=== PATIENT | female | born 1935 | race Caucasian/White ===

== ENCOUNTER 2016-10-17 17:37 | Inpatient (IN) | payer MEDICARE, OTHER ==
[~2016-10-17] VITALS: Ht 165.1 cm; Wt 97.7 kg
[2016-10-17 18:49] LABS: BASOPHILS % (AUTO) 0 % (0-10); EOSINOPHILS # (AUTO) 0.1 10^3/uL (0.0-0.3); EOSINOPHILS % (AUTO) 2 % (0-10); LYMPHOCYTES # (AUTO) 2.2 X 10^3 (1.0-4.0); LYMPHOCYTES % (AUTO) 28 % (12-44); MEAN CORPUSCULAR HEMOGLOBIN 31 PG (25-34); MEAN CORPUSCULAR HGB CONC 32 G/DL (32-36); MEAN CORPUSCULAR VOLUME 97 FL (80-99); MEAN PLATELET VOLUME 10.3 FL (7.4-10.4); MONOCYTES # (AUTO) 0.7 X 10^3 (0.0-1.0); MONOCYTES % (AUTO) 9 % (0-12); NEUTROPHILS # (AUTO) 4.7 X 10^3 (1.8-7.8); NEUTROPHILS % (AUTO) 61 % (42-75); PLATELET COUNT 221 10^3/uL (130-400); RED BLOOD COUNT 4.52 10^6/uL (4.35-5.85); RED CELL DISTRIBUTION WIDTH 14.2 % (10.0-14.5); WHITE BLOOD COUNT 7.7 10^3/uL (4.3-11.0)
[2016-10-17 18:54] LABS: INR 1.1 (0.8-1.4); PROTHROMBIN TIME PATIENT 13.6 SEC (12.2-14.7)
[2016-10-17 19:04] LABS: ALANINE AMINOTRANSFERASE 40 U/L (0-55); ALBUMIN 4.1 G/DL (3.2-4.5); ANION GAP 11 MMOL/L (5-14); ASPARTATE AMINO TRANSFERASE 42 U/L (5-34); BILIRUBIN,TOTAL 0.5 MG/DL (0.1-1.0); BLOOD UREA NITROGEN 12 MG/DL (7-18); BUN/CREATININE RATIO 16; CALCIUM 9.8 MG/DL (8.5-10.1); CARBON DIOXIDE 27 MMOL/L (21-32); CHLORIDE 104 MMOL/L (98-107); CREATINE KINASE 58 U/L (29-168); CREATININE SERUM 0.76 MG/DL (0.60-1.30); GFR ESTIMATED > 60; GLUCOSE 116 MG/DL (70-105); MAGNESIUM 2.3 MG/DL (1.8-2.4); POTASSIUM 4.1 MMOL/L (3.6-5.0); SODIUM 142 MMOL/L (135-145)
[2016-10-17] MEDS ORDERED: DILTIAZEM DRIP 100 MG in SODIUM CHLORIDE (ADD-VANTAGE) 100 ML IV SCH (19:15)
[2016-10-17] MEDS ORDERED: ASPIRIN 81 MG CHEW (CHILDREN'S ASA) PO ONE (19:15)
[2016-10-17 19:24] LABS: TROPONIN I < 0.30 NG/ML (<0.30)
--- NOTE | 2016-10-17 19:47 | ED General ---
General Chief Complaint: Lower Extremity Stated Complaint: BILAT LEG SWELLING/BLISTERS Nursing Triage Note: pt c/o bilat lower extremity swelling x 2 weeks with blisters developing. also reports decreased urination. Nursing Sepsis Screen: No Definite Risk Source of Information: Patient (PT IS A VERY DIFFICULT HISTORIAN, GIVES VERY LITTLE INFORMATION AND IS VERY VAGUE), Family (DAUGHTER GIVES MOST INFO) History of Present Illness Time Seen by Provider: 18:40 Initial Comments PT ARRIVES VIA POV FROM HOME--PT LIVES WITH DAUGHTER C/O BILATERAL LEG SWELLING AND BLISTERS/WEEPING TO LOWER LEGS X 2 WEEKS--STATES IS NO DIFFERENT TODAY DENIES CHEST PAIN HAS CHRONIC COUGH, BUT HAS BEEN WORSE RECENTLY, THEN STATES THAT IT IS GETTING BETTER DENIES FEVER/SWEATS/ CHILLS PT DENIES SHORTNESS OF BREATH DAUGHTER STATES SHE HAS HAD DECREASED URINE OUTPUT PT IS ADAMANT TO THE POINT OF HOSTILITY THAT ALL THIS IS JUST DUE TO ALLERGIES PT DOES STATE SHE WAS DX WITH CIRRHOSIS IN 1991 AND HAS HISTORY OF ALCOHOLISM PT CONTINUES TO SMILE AT LEAST 1 PPD PT DOES NOT HAVE A DR, AND DOES NOT GO TO DR'S. STATES DAUGHTER MADE HER COME HERE TONIGHT Allergies and Home Medications Allergies Coded Allergies: No Known Drug Allergies (Unverified , 10/17/16) Home Medications Unable to Obtain Active Prescriptions or Reported Meds Constitutional: No chills, No diaphoresis, No fever Respiratory: cough, No short of breath (DENIES) Cardiovascular: No chest pain, edema, No palpitations Gastrointestinal: No abdominal pain, No nausea, No vomiting Genitourinary: see HPI, decreased output Musculoskeletal: see HPI Skin: see HPI Psychiatric/Neurological: Denies Numbness, Denies Paresthesia, Denies Tingling , Denies Weakness Hematologic/Lymphatic: No Symptoms Reported Immunological/Allergic: see HPI Past Mxaoyuv-Musvqw-Cnghvl Hx Patient Social History Alcohol Use: Past History Recreational Drug Use: No Smoking Status: Current Everyday Smoker (1 PPD) Type Used: Cigarettes Recent Foreign Travel: No Contact w/Someone Who Travel: No Recent Infectious Disease Expo: No Recent Hopitalizations: No Seasonal Allergies Seasonal Allergies: No Surgeries HX Surgeries: No Respiratory Hx Respiratory Disorders: No Cardiovascular Hx Cardiac Disorders: No Neurological Hx Neurological Disorders: No Reproductive System Hx Reproductive Disorders: No 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 Genitourinary Hx Genitourinary Disorders: No Gastrointestinal Hx Gastrointestinal Disorders: Yes Gastrointestinal Disorders: Cirrhosis Musculoskeletal Hx Musculoskeletal Disorders: No Endocrine Hx Endocrine Disorders: No HEENT HX ENT Disorders: No Cancer Hx Cancer: No Psychosocial Hx Psychiatric Problems: No Integumentary HX Skin/Integumentary Disorder: No Blood Transfusions Hx Blood Disorders: No Physical Exam Vital Signs Vital Sign - Last 12Hours 10/17/16 10/17/16 10/17/16 18:18 18:30 19:42 Temp 99.7 Pulse 139 Resp 20 B/P (MAP) 145/99 Pulse Ox 93 O2 Delivery Nasal Cannula O2 Flow Rate 2.00 Capillary Refill : Less Than 3 Seconds General Appearance: No Apparent Distress, WD/WN, Obese, Other (HOSTILE, MOSTLY TOWARD DAUGHTER--FIGHTING WITH DAUGHTER ABOUT HER MEDICAL ISSUES AND PT IN SEVERE DENIAL ABOUT HER HEALTH ISSUES --INSISTS REPEATEDLY THIS IS ALL FROM HER "ALLERGIES" ) HEENT: PERRL/EOMI Neck: Full Range of Motion, Normal Inspection, Non Tender, Supple, No JVD Respiratory: No Accessory Muscle Use, No Respiratory Distress, Rales (IN BASES --LEFT > RIGHT) Cardiovascular: No JVD, No Murmur, Normal Peripheral Pulses, Irregularly Irregular, Tachycardia Gastrointestinal: Non Tender, Soft Back: No CVA Tenderness Extremity: Normal Capillary Refill, Pedal Edema (2+ ON RIGHT, 3+ ON LEFT WITH RUPTURED / SCABBED BLISTERS AND ECCHYMOTIC AREAS TO LOWER LEGS--LEFT > RIGHT) Neurologic/Psychiatric: Alert, Oriented x3, No Motor/Sensory Deficits, 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 Skin: Normal Color, Warm/Dry, Other ( ABOVE) Progress/Results/Core Measures Results/Orders Lab Results Laboratory Tests Test 10/17/16 18:37 10/17/16 20:46 10/17/16 21:02 10/17/16 23:30 Range/Units White Blood Count 7.7 4.3-11.0 10^3/uL Red Blood Count 4.52 4.35-5.85 10^6/uL Hemoglobin 13.9 11.5-16.0 G/DL Hematocrit 44 35-52 % Mean Corpuscular Volume 97 80-99 FL Mean Corpuscular Hemoglobin 31 25-34 PG Mean Corpuscular Hemoglobin Concent 32 32-36 G/DL Red Cell Distribution Width 14.2 10.0-14.5 % Platelet Count 221 130-400 10^3/uL Mean Platelet Volume 10.3 7.4-10.4 FL Neutrophils (%) (Auto) 61 42-75 % Lymphocytes (%) (Auto) 28 12-44 % Monocytes (%) (Auto) 9 0-12 % Eosinophils (%) (Auto) 2 0-10 % Basophils (%) (Auto) 0 0-10 % Neutrophils # (Auto) 4.7 1.8-7.8 X 10^3 Lymphocytes # (Auto) 2.2 1.0-4.0 X 10^3 Monocytes # (Auto) 0.7 0.0-1.0 X 10^3 Eosinophils # (Auto) 0.1 0.0-0.3 10^3/uL Basophils # (Auto) 0.0 0.0-0.1 10^3/uL Prothrombin Time 13.6 12.2-14.7 SEC INR Comment 1.1 0.8-1.4 Activated Partial Thromboplast Time 30 24-35 SEC Sodium Level 142 135-145 MMOL/L Potassium Level 4.1 3.6-5.0 MMOL/L Chloride Level 104 98-107 MMOL/L Carbon Dioxide Level 27 21-32 MMOL/L Anion Gap 11 5-14 MMOL/L Blood Urea Nitrogen 12 7-18 MG/DL Creatinine 0.76 0.60-1.30 MG/DL Estimat Glomerular Filtration Rate > 60 BUN/Creatinine Ratio 16 Glucose Level 116 H 70-105 MG/DL Calcium Level 9.8 8.5-10.1 MG/DL Magnesium Level 2.3 1.8-2.4 MG/DL Total Bilirubin 0.5 0.1-1.0 MG/DL Aspartate Amino Transf (AST/SGOT) 42 H 5-34 U/L Alanine Aminotransferase (ALT/SGPT) 40 0-55 U/L Alkaline Phosphatase 93 40-136 U/L Total Creatine Kinase 58 29-168 U/L Creatine Kinase MB 1.8 <6.6 NG/ML Troponin I < 0.30 < 0.30 <0.30 NG/ML B-Type Natriuretic Peptide 393.4 H <100.0 PG/ML Total Protein 7.0 6.4-8.2 G/DL Albumin 4.1 3.2-4.5 G/DL TSH [place] Testing 2.62 0.35-4.94 UIU/ML Serum Alcohol < 10 <10 MG/DL Urine Color YELLOW Urine Clarity CLEAR Urine pH 5 5-9 Urine Specific [place] 1.020 1.016-1.022 Urine Protein 2+ H NEGATIVE Urine Glucose (UA) NEGATIVE NEGATIVE Urine Ketones NEGATIVE NEGATIVE Urine Nitrite NEGATIVE NEGATIVE Urine Bilirubin NEGATIVE NEGATIVE Urine Urobilinogen 1 NORMAL MG/DL Urine Leukocyte Esterase 1+ H NEGATIVE Urine RBC (Auto) 1+ H NEGATIVE Urine RBC RARE /HPF Urine WBC 0-2 /HPF Urine Squamous Epithelial Cells RARE /HPF Urine Crystals PRESENT H /LPF Urine Calcium Oxalate Crystals MODERATE H /LPF Urine Bacteria NONE /HPF Urine Casts NONE /LPF Urine Mucus NEGATIVE /LPF Urine Culture Indicated NO Lactic Acid Level 0.81 0.50-2.00 MMOL/L Myoglobin 68.0 10.0-92.0 NG/ML My Orders Orders - DANDY LAST DO Saline Lock/Iv-Start (10/17/16 18:41) Ekg Tracing (10/17/16 18:41) Monitor-Rhythm Ecg Trace Only (10/17/16 18:41) BNP (10/17/16 18:41) Cbc With Automated Diff (10/17/16 18:41) Comprehensive Metabolic Panel (10/17/16 18:41) Creatine Kinase (10/17/16 18:41) Creatine Kinase Mb (10/17/16 18:41) Magnesium (10/17/16 18:41) Protime With Inr (10/17/16 18:41) Partial Thromboplastin Time (10/17/16 18:41) Thyroid Analyzer (10/17/16 18:41) Troponin I (10/17/16 18:41) Ua Culture If Indicated (10/17/16 18:41) O2 (10/17/16 18:41) Sodium Chloride (Ad... W/Diltiazem Drip (10/17/16 19:15) Chest 1 View, Ap/Pa Only (10/17/16 19:11) Aspirin Chewable Tablet (Baby Aspirin Ch (10/17/16 19:15) Alcohol (10/17/16 19:11) Ct Angio Chest W (10/17/16 19:47) Furosemide Injection (Lasix Injection) (10/17/16 20:00) Nitroglycerin Ointment (Nitrobid Ointme (10/17/16 20:00) Catheter(Urinary) Insert & Ass 03,15 (10/17/16 19:52) Iohexol Injection (Omnipaque 350 Mg/Ml 1 (10/17/16 20:15) Ns (Ivpb) (Sodium Chloride 0.9% Ivpb Bag (10/17/16 20:15) Lactic Acid Analyzer (10/17/16 20:52) Blood Culture (10/17/16 20:52) Ceftriaxone Injection (Rocephin Injectio (10/17/16 21:00) Methylprednisolone Sod Succ (Solu-Medrol (10/17/16 21:00) Enoxaparin Injection (Lovenox Injection) (10/17/16 21:15) Metoprolol Tartrate Injection (Lopressor (10/17/16 21:15) Ceftriaxone Injection (Rocephin Injectio (10/17/16 21:27) Methylprednisolone Sod Succ (Solu-Medrol (10/17/16 21:30) Ns (Ivpb) (Sodium Chloride 0.9% Ivpb Bag (10/17/16 21:30) Medications Given in ED Current Medications Medications Dose Ordered Sig/Jennifer Route Start Time Stop Time Status Last Admin Dose Admin Aspirin 324 mg ONCE ONCE PO 10/17/16 19:15 10/17/16 19:16 DC 10/17/16 19:42 324 MG Ceftriaxone Sodium 1000 mg/ Sodium Chloride 50 ml @ 100 mls/hr ONCE ONCE IV 10/17/16 21:00 10/17/16 21:32 DC 10/17/16 21:35 100 MLS/HR Furosemide 80 mg ONCE ONCE IVP 10/17/16 20:00 10/17/16 20:01 DC 10/17/16 20:35 80 MG Iohexol 150 ml ONCE ONCE IV 10/17/16 20:15 10/17/16 20:16 DC 10/17/16 20:12 125 ML Methylprednisolone Sodium Succinate 125 mg ONCE ONCE IVP 10/17/16 21:00 10/17/16 21:32 DC 10/17/16 21:35 125 MG Nitroglycerin 1 inch ONCE ONCE TOP 10/17/16 20:00 10/17/16 20:01 DC 10/17/16 20:50 1 INCH Sodium Chloride 100 ml ONCE ONCE IV 10/17/16 20:15 10/17/16 20:16 DC 10/17/16 20:13 80 ML Vital Signs/I&O Vital Sign - Last 12Hours 10/17/16 10/17/16 10/17/16 10/17/16 18:18 18:30 19:42 22:35 Temp 99.7 98.1 98.1 Pulse 139 85 Resp 20 20 B/P (MAP) 145/99 141/102 Pulse Ox 93 91 92 O2 Delivery Nasal Cannula O2 Flow Rate 2.00 2.00 2.00 10/17/16 10/17/16 10/17/16 10/17/16 22:45 22:59 23:00 23:47 Temp 98.2 Pulse 89 86 Resp 10 B/P (MAP) 133/84 126/83 Pulse Ox 95 92 O2 Delivery Nasal Cannula O2 Flow Rate 3.00 3.00 10/18/16 10/18/16 10/18/16 10/18/16 00:00 00:40 01:00 02:31 Pulse 75 74 B/P (MAP) 120/82 Pulse Ox 92 94 O2 Flow Rate 3.00 Blood Pressure Mean: 114 Progress Note : Progress Note PT PLACED ON CARDIZEM DRIP, GIVEN LASIX, LOVENOX, ASPIRIN, LOPRESSOR, ROCEPHIN INITIAL O2 SAT 90-91% ON ROOM AIR--UP TO MID 90'S ON 2L/NC ECG Initial ECG Impression Time: 18:40 Initial ECG Rate: 131 Initial ECG Rhythm: A Fib/Flutter (WITH RVR) Initial ECG Impression: Atrial Fibrillation w/RVR Initial ECG Comparisson: No Previous ECG Available Diagnostic Imaging Comments CXR-CARDIOMEGALY, MILD PULMONARY EDEMA, POSSIBLE RLL PNEUMONIA AND TRACE PLEURAL EFFUSION--PER RADIOLOGIST REPORT CT CHEST ANGIOGRAM--NO P.E. CARDIOMEGALY WITH FINDINGS OF PULMONARY HTN; RML / RLL CONSOLIDATIONS, TRACE RIGHT PLEURAL EFFUSION, CIRRHOSIS OF LIVER, LEFT THYROID NODULE, GALLSTONES--PER RADIOLOGIST REPORT @ 2049 Reviewed: Reviewed by Me Departure Communication Progress Notes 2099--SPOKE WITH DR. TRINH, ACCEPTS PT FOR ADMIT. WILL CONSULT DR. STOKES AND DR. KOLB 2102--SPOKE WITH DR. STOKES FOR CARDIOLOGY CONSULT. ORDERS NOTED. Impression Impression: Primary Impression: ATRIAL FIBRILLATION WITH RVR--NEW DIAGNOSIS/UNKNOWN DURATION Additional Impressions: CHF (congestive heart failure) Pneumonia involving right lung Cirrhosis HTN (hypertension) Tobacco abuse History of alcoholism LEG EDEMA BILATERALLY WITH BLISTERS Disposition: ADMITTED INPATIENT Condition: Improved Decision to Admit Reason: Admit from ER (General) Decision to Admit/Date: Oct 17, 2016 Time/Decision to Admit Time: 21:00 Departure-Patient Inst. Referrals: NO,LOCAL PHYSICIAN (PCP/Family) Primary Care Physician Scripts Unable to Obtain Active Prescriptions or Reported Meds DANDY LAST DO Oct 17, 2016 19:47
[2016-10-17] MEDS ORDERED: FUROSEMIDE 40 MG/4 ML INJ (LASIX) IVP ONE (20:00)
[2016-10-17] MEDS ORDERED: NITROGLYCERIN 2% OINT 1 GM UNIT DOSE PACKET TOP ONE (20:00)
--- NOTE | 2016-10-17 20:02 | Diagnostic Imaging Report ---
INDICATION: Lower extremity swelling. COMPARISON: None available. TECHNIQUE: Single view of the chest. FINDINGS: Cardiomegaly with bilateral perihilar heterogeneous opacities. More nodular irregular opacities are present in the right lung base. Pulmonary vascular indistinctness is present. Possible trace right pleural effusion. No pneumothorax. IMPRESSION: 1. Cardiomegaly with findings most suggestive of mild pulmonary edema. However, in the appropriate setting, there could be an underlying pneumonia in the right lower lobe. 2. Question of trace right pleural effusion. Dictated by: Dictated on workstation # [id number]
[2016-10-17] MEDS ORDERED: IOHEXOL 350 MG/ML 150 ML (OMNIPAQUE 350) VIAL IV ONE (20:15)
[2016-10-17] MEDS ORDERED: NS 100 ML (IVPB) BAG IV ONE (20:15)
--- NOTE | 2016-10-17 20:44 | Diagnostic Imaging Report ---
PROCEDURE: CT angiography of the chest with contrast. TECHNIQUE: Multiple contiguous axial images were obtained through the chest after uneventful bolus administration of intravenous contrast. Reconstructed CTA MIP acquisitions were also performed. INDICATION: Chest pain with bilateral lower extremity swelling. COMPARISON: Portable chest radiograph of earlier same day. FINDINGS: Vasculature: No pulmonary emboli. No evidence of right ventricular strain. The pulmonary trunk is dilated suggestive of pulmonary hypertension. Thoracic aorta is normal in caliber. No aortic disection or pseudoaneurysm. Heart and mediastinum: There is a 2.7-1.8 cm hypodense nodule in the left thyroid. No supraclavicular, axillary, or intra-thoracic lymphadenopathy. Heart is enlarged without pericardial effusion. Pleura: Trace right pleural effusion. No pneumothorax. Lungs and airway: Right middle lobe subtotal consolidations with bandlike configuration. Patchy opacities in the lingula and right lower lobe are also present. No concerning pulmonary mass. Upper abdomen: The liver has a very lobulated surface morphology. Hyperdensities layering within the gallbladder are most compatible with gallstones. Musculoskeletal: No concerning osseous lesion. IMPRESSION: 1. No pulmonary emboli. 2. Cardiomegaly with enlargement of the pulmonary trunk suggestive of pulmonary hypertension. 3. Subtotal consolidations within the middle lobe and patchy consolidations in the right lower lobe could be due to atelectasis. However, in an appropriate setting, these may represent foci of infection. 4. Trace right pleural effusion. 5. Extremely lobulated morphology of the liver raises possibility of cirrhosis. Underlying neoplastic process cannot be excluded. 6. Layering hyperdensities in the gallbladder most compatible with cholelithiasis. 7. Indeterminate left thyroid nodule measuring 2.7 x 1.8 cm. Consider thyroid ultrasound for further evaluation on a nonemergent basis. Dictated by: Dictated on workstation # [id number]
[2016-10-17 20:53] LABS: KETONES,URINE NEGATIVE (NEGATIVE); LEUKOCYTE ESTERASE ,URINE 1+ (NEGATIVE); NITRITE,URINE NEGATIVE (NEGATIVE); PH,URINE 5 (5-9); PROTEIN,URINE 2+ (NEGATIVE); UROBILINOGEN,URINE 1 MG/DL (NORMAL)
[2016-10-17] MEDS ORDERED: methylPREDNISolone 125 MG (Solu-MEDROL) VIAL IVP ONE (21:00)
[2016-10-17] MEDS ORDERED: cefTRIAXone INJECTION 1,000 MG in NS (IVPB) 50 ML IV ONE (21:00)
[2016-10-17 21:05] LABS: BILIRUBIN,URINE NEGATIVE (NEGATIVE); SQUAMOUS EPITHELIAL CELL,UR RARE /HPF; WBC,URINE 0-2 /HPF
[2016-10-17 21:06] LABS: CALCIUM OXALATE CRYSTALS,UR MODERATE /LPF
[2016-10-17] MEDS ORDERED: ENOXAPARIN 80 MG/0.8 ML (LOVENOX) SYR SC ONE (21:15)
[2016-10-17] MEDS ORDERED: meTOprolol 5 MG/5 ML (LOPRESSOR) VIAL IV ONE (21:15)
[2016-10-17] MEDS ORDERED: cefTRIAXone 1 GM (ROCEPHIN) VIAL ONE (21:27)
[2016-10-17] MEDS ORDERED: methylPREDNISolone 125 MG (Solu-MEDROL) VIAL ONE (21:30)
[2016-10-17] MEDS ORDERED: NS (IVPB) 50 ML ONE (21:30)
[2016-10-17 22:45] VITALS: BP 133/84
[2016-10-17] MEDS ORDERED: PATIENT MAY USE OWN MEDS, ALL PO SCH (22:45)
[2016-10-17 23:00] VITALS: BP 126/83
[2016-10-17] MEDS ORDERED: meTOprolol 5 MG/5 ML (LOPRESSOR) VIAL IV PRN (23:45)
[2016-10-18] VITALS (19 sets, daily range): BP systolic 99–129; BP diastolic 48–91
[2016-10-18] MEDS ORDERED: morphine INJ 4 MG/ML 1 ML (VIAL/SYRINGE) IV PRN (00:15)
[2016-10-18] MEDS ORDERED: AZITHROMYCIN 500 MG/NS 250 ML IVPB (1 X DOSE) IV SCH ×2 (00:15)
[2016-10-18] MEDS ORDERED: ACETAMINOPHEN 500 MG TAB (TYLENOL) PO PRN (00:15)
[2016-10-18] MEDS: DILTIAZEM DRIP 100 MG/NS 100 ML IV SCH ×4 (00:40→07:16)
[2016-10-18] MEDS: NITROGLYCERIN 2% OINT 1 GM UNIT DOSE PACKET TOP SCH ×2 (02:00→09:02)
[2016-10-18] MEDS ORDERED: RT-ALBUTEROL SULF 2.5 MG/3 ML PRE-MIX VIAL IH PRN (02:45)
[2016-10-18] MEDS ORDERED: FLU TRIvalent (5 YOA+) 2016-17 (AFLURIA) 0.5 ML IM ONE (07:00)
[2016-10-18 07:02] LABS: CHOLESTEROL 187 MG/DL (< 200); DIRECT LDL 95 MG/DL (1-129); TRIGLYCERIDES 42 MG/DL (<150); VLDL CHOLESTEROL 8 MG/DL (5-40)
[2016-10-18] MEDS: RT-ALBUTEROL SULF 2.5 MG/3 ML PRE-MIX VIAL IH SCH ×4 (07:26→20:49)
--- NOTE | 2016-10-18 07:46 | Diagnostic Imaging Report ---
INDICATION: Pneumonia. Exam compared 10/17/2016 FINDINGS: Atelectatic changes in the right middle lobe have progressed. Airspace disease in the right lung base, however, improved. Cardiomegaly unchanged. IMPRESSION: Mixed changes on the right, atelectatic features have progressed, however, airspace disease has improved. Dictated by: Dictated on workstation # [id number]
--- NOTE | 2016-10-18 07:53 | Pulmonary Consultation ---
History of Present Illness History of Present Illness Date of Consultation 10/18/16 07:48 Date of Admission History of Present Illness 81yo with hx of cirrhosis secondary to ETOH and tobacco use presented to ED secondary to worsenign cough and bilateral leg swelling and blisters worsening over last 2 weeks Allergies and Home Medications Allergies Coded Allergies: No Known Drug Allergies (Unverified , 10/17/16) Home Medications No Active Prescriptions or Reported Meds Past Jxjzblp-Sekmie-Guebhg Hx Patient Social History Alcohol Use: Past History Recreational Drug Use: No Smoking Status: Current Everyday Smoker (1 PPD) Type Used: Cigarettes Recent Foreign Travel: No Contact w/Someone Who Travel: No Recent Infectious Disease Expo: No Recent Hopitalizations: No Physical Abuse Screen: No Sexual Abuse: No Immunizations Up To Date PED Vaccines UTD: No Date of Pneumonia Vaccine: Oct 17, 2016 Seasonal Allergies Seasonal Allergies: No Surgeries HX Surgeries: No Respiratory Hx Respiratory Disorders: No Cardiovascular Hx Cardiac Disorders: No Neurological Hx Neurological Disorders: No Reproductive System Hx Reproductive Disorders: 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 Exam Exam Vital Signs Date Time Temp Pulse Resp B/P (MAP) Pulse Ox O2 Delivery O2 Flow Rate FiO2 10/18/16 07:26 92 4.00 10/18/16 07:16 81 118/59 10/18/16 05:00 97.6 82 20 123/77 90 Nasal Cannula 3.00 10/18/16 04:00 84 21 111/91 92 Nasal Cannula 3.00 10/18/16 04:00 93 3.00 10/18/16 03:00 74 11 128/79 93 Nasal Cannula 3.00 10/18/16 02:31 94 10/18/16 02:00 77 28 112/90 93 Nasal Cannula 3.00 10/18/16 01:00 85 15 112/76 93 Nasal Cannula 3.00 10/18/16 01:00 74 10/18/16 00:40 75 120/82 10/18/16 00:00 92 3.00 10/18/16 00:00 80 34 112/74 93 Nasal Cannula 3.00 10/17/16 23:47 92 3.00 10/17/16 23:00 98.2 86 10 126/83 95 Nasal Cannula 3.00 10/17/16 22:59 89 10/17/16 22:45 133/84 10/17/16 22:35 98.1 85 20 92 2.00 10/17/16 19:42 98.1 139 20 141/102 91 2.00 10/17/16 18:30 93 Nasal Cannula 2.00 10/17/16 18:18 99.7 145/99 I & O 10/18/16 07:00 Intake Total 900 ml Output Total 2500 ml Balance -1600 ml General Appearance: No Apparent Distress, WD/WN, Obese, Other (HOSTILE, MOSTLY TOWARD DAUGHTER--FIGHTING WITH DAUGHTER ABOUT HER MEDICAL ISSUES AND PT IN SEVERE DENIAL ABOUT HER HEALTH ISSUES --INSISTS REPEATEDLY THIS IS ALL FROM HER "ALLERGIES" ) HEENT: PERRL/EOMI Neck: Full Range of Motion, Normal Inspection, Non Tender, Supple, No JVD Respiratory: No Accessory Muscle Use, No Respiratory Distress, Rales (IN BASES --LEFT > RIGHT) Cardiovascular: No JVD, No Murmur, Normal Peripheral Pulses, Irregularly Irregular, Tachycardia Capillary Refill: Less Than 3 Seconds Extremity: Normal Capillary Refill, Pedal Edema (2+ ON RIGHT, 3+ ON LEFT WITH RUPTURED / SCABBED BLISTERS AND ECCHYMOTIC AREAS TO LOWER LEGS--LEFT > RIGHT) Neurologic/Psychiatric: Alert, Oriented x3, No Motor/Sensory Deficits, 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
[2016-10-18] MEDS ORDERED: ENOXAPARIN 80 MG/0.8 ML (LOVENOX) SYR SC SCH (08:00)
[2016-10-18] MEDS ORDERED: FUROSEMIDE 40 MG/4 ML INJ (LASIX) IV SCH (08:00)
[2016-10-18] MEDS: ASPIRIN E.C. 325 MG (ECOTRIN) TABLET PO SCH (09:02)
--- NOTE | 2016-10-18 09:28 | Consultation-Cardiology ---
HPI-Cardiology Cardiology Consultation: Date of Consultation 10/18/16 Date of Admission 10/17/16 Attending Physician Monica Bach DO Admitting Physician No,Local Physician Consulting Physician ALYSIA STOKES MD, FACP, FACC, [facility], [facility] Physician requesting consult: Dr Bach HPI: Chief Complaint: Leg swelling, shortness of breath 81 yo woman brought to the ER on by her daughter with whom she lives. She has had increasing shortness of breath and bilat leg swelling and productive cough for several weeks. Denies cp or palp or dyspnea or syncope. Denies N/V/D or stool discoloration Review of Systems-Cardiology Review of Systems Constitutional: No malaise, No tiredness, No weight loss, weight gain Eyes: No vision change Ears/Nose/Throat: No ear discharge, No nasal drainage, No recent hearing loss Respiratory: As described under HPI Cardiovascular: As described under HPI Gastrointestinal: As described under HPI Genitourinary: No dysuria, No hematuria, No urine frequency changes Musculoskeletal: No back pain, No joint pain Skin: skin related problems (relatively chronic leg skin bruising ) Psychiatric/Neurological: No focal weakness, No seizure, No syncope Hematologic: No bleeding abnormalities JNO-Clwnze-Tnnweo Hx Patient Social History Alcohol Use: Past History Recreational Drug Use: No Smoking Status: Current Everyday Smoker (1 PPD) Type Used: Cigarettes Recent Foreign Travel: No Recent Infectious Disease Expo: No Hospitalization with Isolation: Denies Physical Abuse Screen: No Sexual Abuse: No Immunizations Up To Date Date of Pneumonia Vaccine: Oct 17, 2016 Past Medical History PMH As described under Assessment. Family Medical History Family Medical History: No family h/o early CAD of SCD Family History: Patient reports no known family medical history. Allergies and Home Medications Allergies Coded Allergies: No Known Drug Allergies (Unverified , 10/17/16) Home Medications Unable to Obtain Active Prescriptions or Reported Meds Physical Exam-Cardiology Physical Exam Vital Signs/I&O Vital Sign - Last 12Hours 10/17/16 10/17/16 10/17/16 10/17/16 22:35 22:45 22:59 23:00 Temp 98.1 98.2 Pulse 85 89 86 Resp 20 10 B/P (MAP) 133/84 126/83 Pulse Ox 92 95 O2 Delivery Nasal Cannula O2 Flow Rate 2.00 3.00 10/17/16 10/18/16 10/18/16 10/18/16 23:47 00:00 00:00 00:40 Pulse 80 75 Resp 34 B/P (MAP) 112/74 120/82 Pulse Ox 92 93 92 O2 Delivery Nasal Cannula O2 Flow Rate 3.00 3.00 3.00 10/18/16 10/18/16 10/18/16 10/18/16 01:00 01:00 02:00 02:31 Pulse 74 85 77 Resp 15 28 B/P (MAP) 112/76 112/90 Pulse Ox 93 93 94 O2 Delivery Nasal Cannula Nasal Cannula O2 Flow Rate 3.00 3.00 10/18/16 10/18/16 10/18/16 10/18/16 03:00 04:00 04:00 05:00 Temp 97.6 Pulse 74 84 82 Resp 11 21 20 B/P (MAP) 128/79 111/91 123/77 Pulse Ox 93 93 92 90 O2 Delivery Nasal Cannula Nasal Cannula Nasal Cannula O2 Flow Rate 3.00 3.00 3.00 3.00 10/18/16 10/18/16 10/18/16 10/18/16 07:00 07:00 07:16 07:26 Pulse 81 84 81 Resp 6 B/P (MAP) 107/70 118/59 Pulse Ox 91 92 O2 Delivery Nasal Cannula O2 Flow Rate 3.00 4.00 10/18/16 10/18/16 10/18/16 08:00 08:00 09:04 Temp 98.6 Pulse 87 81 Resp 27 20 B/P (MAP) 107/68 112/68 Pulse Ox 91 90 91 O2 Delivery Nasal Cannula Nasal Cannula O2 Flow Rate 3.00 3.00 3.00 Intake and Output 10/18/16 00:00 Intake Total 50 ml Balance 50 ml Capillary Refill : Less Than 3 Seconds Constitutional: AAO x 3, well-developed, well-nourished HEENT: EOMI, hearing is well preserved, No xanthelasmas are seen Neck: No carotid bruit, carotid pulses are 2 + bilaterally, with good upstrokes Respiratory: No accessory muscle use, other (bilateral rhonchi and increase exp phase; diminished air entry at the bases, more on the right) Cardiovascular: irregularly irregular, S1 and S2, systolic murmur (faint JUMANA at cardiac base) Gastrointestinal: No tender, soft, No guarding, audible bowel sounds Extremities: No clubbing, No cyanosis, significant edema Neurologic/Psychiatric: oriented x 3, grossly intact, power is 5/5 both on sides Skin: other (areas of scratching and abrasions and excoriation and bruising on the legs) Data Review Labs Laboratory Tests 10/17/16 18:37: White Blood Count 7.7, Red Blood Count 4.52, Hemoglobin 13.9, Hematocrit 44, Mean Corpuscular Volume 97, Mean Corpuscular Hemoglobin 31, Mean Corpuscular Hemoglobin Concent 32, Red Cell Distribution Width 14.2, Platelet Count 221, Mean Platelet Volume 10.3, Neutrophils (%) (Auto) 61, Lymphocytes (%) (Auto) 28 , Monocytes (%) (Auto) 9, Eosinophils (%) (Auto) 2, Basophils (%) (Auto) 0, Neutrophils # (Auto) 4.7, Lymphocytes # (Auto) 2.2, Monocytes # (Auto) 0.7, Eosinophils # (Auto) 0.1, Basophils # (Auto) 0.0, Prothrombin Time 13.6, INR Comment 1.1, Activated Partial Thromboplast Time 30, Sodium Level 142, Potassium Level 4.1, Chloride Level 104, Carbon Dioxide Level 27, Anion Gap 11, Blood Urea Nitrogen 12, Creatinine 0.76, Estimat Glomerular Filtration Rate > 60 , BUN/Creatinine Ratio 16, Glucose Level 116H, Calcium Level 9.8, Magnesium Level 2.3, Total Bilirubin 0.5, Aspartate Amino Transf (AST/SGOT) 42H, Alanine Aminotransferase (ALT/SGPT) 40, Alkaline Phosphatase 93, Total Creatine Kinase 58, Creatine Kinase MB 1.8, Troponin I < 0.30, B-Type Natriuretic Peptide 393.4H , Total Protein 7.0, Albumin 4.1, TSH Cross Testing 2.62, Serum Alcohol < 10 10/17/16 20:46: Urine Color YELLOW, Urine Clarity CLEAR, Urine pH 5, Urine Specific [place] 1.020, Urine Protein 2+H, Urine Glucose (UA) NEGATIVE, Urine Ketones NEGATIVE, Urine Nitrite NEGATIVE, Urine Bilirubin NEGATIVE, Urine Urobilinogen 1, Urine Leukocyte Esterase 1+H, Urine RBC (Auto) 1+H, Urine RBC RARE, Urine WBC 0-2, Urine Squamous Epithelial Cells RARE, Urine Crystals PRESENTH, Urine Calcium Oxalate Crystals MODERATEH, Urine Bacteria NONE, Urine Casts NONE, Urine Mucus NEGATIVE, Urine Culture Indicated NO 10/17/16 21:02: Lactic Acid Level 0.81 10/17/16 23:30: Troponin I < 0.30, Myoglobin 68.0 10/18/16 06:30: Troponin I < 0.30, Triglycerides Level 42, Cholesterol Level 187, LDL Cholesterol Direct 95, VLDL Cholesterol 8, HDL Cholesterol 70H Laboratory Tests 10/17/16 18:37 A/P-Cardiology Assessment/Admission Diagnosis * Multifactorial dyspnea (see below) * Newly diagnosed CHF of undetermined etiology * Atrial fibrillation of unknown age, first diagnosed on 10/17/16, with a rapid vent response * RLL and RML pneumonia, managed by Dr Bach * Probable COPD (chronic bronchitis) managed by Dr Bach * Chronic tobacco use * Hypertension * H/o non-alcoholic cirrhosis diagnosed in or around 1991 from which, she states , she made full recovery * Cholelithiasis * Thyroid nodule diagnosed on a CT scan of 10/07/16, managed by Dr Bach Discussion and Recomendations * B-blockers and/or Ca blockers for vent rate control * Diuretics for CHF * Apixaban for stroke prophylaxis * Echo to eval EF and wall motion * Monitor labs * Management of pneumonia and COPD and cirrhosis and thyroid and other medical issues is with Dr Bach * I spoke with her and her daughter in detail and answered questions Clinical Quality Measures DVT/VTE Risk/Contraindication: Risk Factor Score Per Nursin RFS Level Per Nursing on Admit: 4+=Very High ALYSIA STOKES MD [facility] Oct 18, 2016 09:28
[2016-10-18] MEDS ORDERED: FUROSEMIDE 40 MG/4 ML INJ (LASIX) IVP NR (09:30)
[2016-10-18] MEDS ORDERED: DILTIAZEM 240 MG (CARDIZEM CD) CAP PO NR (09:45)
--- NOTE | 2016-10-18 10:58 | History & Physical-Hospitalist ---
HPI History of Present Illness: HPI/Chief Complaint CC: Severe weakness HPI: This is 81yoWF pt that has not seen a doctor in many years that presented with new onset AF w/RVR, CHF and pneumonia. Cardiology and Pulmonology have been consulted and Cardizem drip is being changed to PO. Dr. Fitzpatrick Review: AF w/RVR. 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 Pt takes Cats Claw for HTN. Pt states that medicine is poison. Pt is on O2. Pt heart rate is 70s-80s now and weaning off drip. Patient Interview: Pt states she feels fine. Pt just moved into her daughters house in [facility]. Pt just moved from [place], [place] living with another daughter. Pt daughter states she does not like doctors or medicine. Physical exam was stable. Pt denies using O2 at home. Pt would like to be DC soon. Scribed by Maurilio Merino under the direct supervision of Dr. Trinh. Source: patient Date Seen 10/18/16 Attending Physician Monica Trinh DO PCP No,Local Physician Referring Physician Date of Admission Oct 17, 2016 at 21:00 Home Medications & Allergies Home Medications Reviewed patient Home Medication Reconciliation Form Allergies Allergies Coded Allergies No Known Drug Allergies (Unverified10/17/16) Past Idcleuw-Wvlwcy-Czoxde Hx Patient Social History Marrital Status: single Employed/Student: retired Alcohol Use: Past History Recreational Drug Use: No Smoking Status: Current Everyday Smoker (1 PPD) Type Used: Cigarettes Physical Abuse Screen: No Sexual Abuse: No Recent Foreign Travel: No Contact w/other who traveled: No Recent Hopitalizations: No Recent Infectious Disease Expo: No Immunizations Up To Date Date of Pneumonia Vaccine: Oct 17, 2016 Seasonal Allergies Seasonal Allergies: No Surgeries HX Surgeries: No Respiratory Hx Respiratory Disorders: No Cardiovascular Hx Cardiovascular Disorders: No Neurological Hx Neurological Disorders: No Reproductive System Hx Reproductive Disorders: No Genitourinary Hx Genitourinary Disorders: No Gastrointestinal Hx Gastrointestinal Disorders: Yes Gastrointestinal Disorders: Cirrhosis Musculoskeletal Hx Musculoskeletal Disorders: No Endocrine Hx Endocrine Disorders: No HEENT HX ENT Disorders: No Cancer Hx Cancer: No Psychosocial Hx Psychiatric Problems: No Integumentary HX Skin/Integumentary Disorder: No Skin/Integumentary Disorders: Recent Skin Changes Blood Transfusions Hx Blood Disorders: No Adverse Reaction to a Blood Tr: No Family Medical History Family Hx: Patient reports no known family medical history. Review of Systems ROS-Unable to Obtain: not forthcoming with details Constitutional: see HPI, malaise, weakness Physical Exam Physical Exam Vital Signs Vital Sign - Last 12Hours 10/17/16 10/17/16 10/17/16 18:18 18:30 19:42 Temp 99.7 Pulse 139 Resp 20 B/P (MAP) 145/99 Pulse Ox 93 O2 Delivery Nasal Cannula O2 Flow Rate 2.00 Capillary Refill : Less Than 3 Seconds General Appearance: No Apparent Distress, WD/WN, Chronically ill, Obese Eyes: Bilateral Eye Normal Inspection, Bilateral Eye PERRL HEENT: PERRL/EOMI, Normal ENT Inspection, Pharynx Normal Neck: Full Range of Motion, Normal Inspection, Non Tender, Supple, Carotid Bruit Respiratory: Chest Non Tender, No Accessory Muscle Use, No Respiratory Distress , Decreased Breath Sounds, Wheezing Cardiovascular: No Edema, No Gallop, No JVD, No Murmur, Normal Peripheral Pulses, Irregularly Irregular, Tachycardia Gastrointestinal: Normal Bowel Sounds, No Organomegaly, No Pulsatile Mass, Non Tender, Soft Back: Normal Inspection, No CVA Tenderness, No Vertebral Tenderness Extremity: Normal Capillary Refill, Normal Inspection, Normal Range of Motion, Non Tender, No Calf Tenderness Neurologic/Psychiatric: Alert, Oriented x3, No Motor/Sensory Deficits, Depressed Affect Skin: Normal Color, Warm/Dry Lymphatic: No Adenopathy Results Results/Procedures Lab Laboratory Tests 10/17/16 18:37 Assessment/Plan Admission Diagnosis Assessment: Atrial fibrillation with rapid ventricular response weaning off Cardizem drip to by mouth form per Dr. 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 Fitzpatrick and Dr. Garcia Very difficult situation given the fact that the daughter desperately wants to help her but mother resistant to treatment so we will consult palliative care due to advanced age and comorbidities patient will continue to decline and allow natural course of life to ensue Clinical Quality Measures DVT/VTE Risk/Contraindication: Risk Factor Score Per Nursin RFS Level Per Nursing on Admit: 4+=Very High MONICA TRINH DO Oct 18, 2016 10:58
[2016-10-18] MEDS ORDERED: cefTRIAXone 1 GM/NS 50 ML IVPB IV SCH ×2 (21:00)
[2016-10-18] MEDS: APIXABAN 5 MG (ELIQUIS) TABLET PO SCH (21:20)
[2016-10-19] VITALS: BP 122/63
[2016-10-19 03:30] VITALS: BP 113/73
[2016-10-19 04:39] LABS: BASOPHILS % (AUTO) 0 % (0-10); EOSINOPHILS % (AUTO) 0 % (0-10); LYMPHOCYTES # (AUTO) 1.6 X 10^3 (1.0-4.0); LYMPHOCYTES % (AUTO) 16 % (12-44); MEAN CORPUSCULAR HEMOGLOBIN 31 PG (25-34); MEAN CORPUSCULAR HGB CONC 31 G/DL (32-36); MEAN CORPUSCULAR VOLUME 98 FL (80-99); MEAN PLATELET VOLUME 10.1 FL (7.4-10.4); MONOCYTES # (AUTO) 0.9 X 10^3 (0.0-1.0); MONOCYTES % (AUTO) 9 % (0-12); NEUTROPHILS # (AUTO) 7.5 X 10^3 (1.8-7.8); NEUTROPHILS % (AUTO) 75 % (42-75); PLATELET COUNT 222 10^3/uL (130-400); RED BLOOD COUNT 4.12 10^6/uL (4.35-5.85); RED CELL DISTRIBUTION WIDTH 14.1 % (10.0-14.5)
[2016-10-19 05:21] LABS: ALANINE AMINOTRANSFERASE 31 U/L (0-55); ALBUMIN 3.8 G/DL (3.2-4.5); ANION GAP 9 MMOL/L (5-14); ASPARTATE AMINO TRANSFERASE 30 U/L (5-34); BILIRUBIN,TOTAL 0.4 MG/DL (0.1-1.0); BLOOD UREA NITROGEN 20 MG/DL (7-18); BUN/CREATININE RATIO 24; CALCIUM 9.3 MG/DL (8.5-10.1); CARBON DIOXIDE 31 MMOL/L (21-32); CHLORIDE 100 MMOL/L (98-107); CREATININE SERUM 0.83 MG/DL (0.60-1.30); GFR ESTIMATED > 60; GLUCOSE 118 MG/DL (70-105); MAGNESIUM 2.2 MG/DL (1.8-2.4); POTASSIUM 3.9 MMOL/L (3.6-5.0); SODIUM 140 MMOL/L (135-145); TOTAL PROTEIN 6.5 G/DL (6.4-8.2)
[2016-10-19] MEDS: RT-ALBUTEROL SULF 2.5 MG/3 ML PRE-MIX VIAL IH SCH ×3 (07:00→14:40)
[2016-10-19] MEDS: ASPIRIN E.C. 325 MG (ECOTRIN) TABLET PO SCH (07:55)
[2016-10-19] MEDS: APIXABAN 5 MG (ELIQUIS) TABLET PO SCH (07:55)
[2016-10-19 08:00] VITALS: BP_SYST 101; BP_SYST 129; BP_DIAS 54; BP_DIAS 76
--- NOTE | 2016-10-19 08:04 | Pulmonary Progress Note ---
Subjective Subjective/Events-last exam Pt has a lot of complaints and has been yelling at staff. She does not want medical treatment. Exam Exam Vital Signs Date Time Temp Pulse Resp B/P (MAP) Pulse Ox O2 Delivery O2 Flow Rate FiO2 10/19/16 07:47 85 10/19/16 03:30 97.2 91 18 113/73 93 Nasal Cannula 3.00 10/19/16 00:00 98.5 109 22 122/63 92 Nasal Cannula 3.00 10/18/16 20:50 90 4.00 10/18/16 20:00 3.00 10/18/16 19:01 99.7 89 20 116/70 91 Nasal Cannula 3.00 10/18/16 18:00 84 24 116/ 89 Nasal Cannula 3.00 10/18/16 17:00 87 14 110/67 88 Nasal Cannula 3.00 10/18/16 16:00 79 11 103/58 93 Nasal Cannula 3.00 10/18/16 15:53 97.9 10/18/16 15:53 91 3.00 10/18/16 15:00 100 21 99/57 92 Nasal Cannula 3.00 10/18/16 14:35 93 4.00 10/18/16 14:00 98 34 107/61 90 Nasal Cannula 3.00 10/18/16 13:00 77 10/18/16 13:00 87 25 129/48 89 Nasal Cannula 3.00 10/18/16 12:36 91 3.00 10/18/16 12:08 93 4.00 10/18/16 12:00 98.9 80 22 122/67 90 Nasal Cannula 3.00 10/18/16 11:00 101 12 115/76 90 Nasal Cannula 3.00 10/18/16 10:08 91 4.00 10/18/16 10:00 89 16 102/80 92 Nasal Cannula 3.00 10/18/16 09:04 98.6 81 20 112/68 91 Nasal Cannula 3.00 I & O 10/19/16 07:00 Intake Total 2070 ml Output Total 1375 ml Balance 695 ml General Appearance: No Apparent Distress, WD/WN, Obese, Other (HOSTILE, MOSTLY TOWARD DAUGHTER--FIGHTING WITH DAUGHTER ABOUT HER MEDICAL ISSUES AND PT IN SEVERE DENIAL ABOUT HER HEALTH ISSUES --INSISTS REPEATEDLY THIS IS ALL FROM HER "ALLERGIES" ) HEENT: PERRL/EOMI Neck: Full Range of Motion, Normal Inspection, Non Tender, Supple, No JVD Respiratory: No Accessory Muscle Use, No Respiratory Distress, Rales (IN BASES --LEFT > RIGHT) Cardiovascular: No JVD, No Murmur, Normal Peripheral Pulses, Irregularly Irregular, Tachycardia Capillary Refill: Less Than 3 Seconds Extremity: Normal Capillary Refill, Pedal Edema (2+ ON RIGHT, 3+ ON LEFT WITH RUPTURED / SCABBED BLISTERS AND ECCHYMOTIC AREAS TO LOWER LEGS--LEFT > RIGHT) Neurologic/Psychiatric: Alert, Oriented x3, No Motor/Sensory Deficits, mr teacher II- XII Norm as Tested Skin: Normal Color, Warm/Dry, Other ( ABOVE) Lymphatic: No Adenopathy Results Lab Laboratory Tests 10/17/16 18:37 10/19/16 04:10 Assessment/Plan Assessment/Plan Dyspnea probable COPD -Out pt testing -Pt will need to be evaluated for home oxygen prior to discharge Acute bronchitis -SVNS, rocephin and azithromycin Atrial fibrillation with RVR -Cardizem gtt per cardiology CHF 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
[2016-10-19] MEDS ORDERED: AZITHROMYCIN 250 MG TAB (ZITHROMAX) PO SCH (09:00)
[2016-10-19] MEDS ORDERED: DILTIAZEM 240 MG (CARDIZEM CD) CAP PO SCH (09:00)
[2016-10-19] MEDS ORDERED: FUROSEMIDE 40 MG/4 ML INJ (LASIX) IVP SCH (09:00)
--- NOTE | 2016-10-19 09:26 | ECHOCARDIOGRAPHY REPORT ---
PROCEDURE PHYSICIAN: ALYSIA FITZPATRICK DATE OF PROCEDURE: 10/18/2016 TWO DIMENSIONAL ECHOCARDIOGRAM REPORT PRIMARY PHYSICIAN: Dr. Bach OTHER PHYSICIAN: REFERRING PHYSICIAN: ORDERING PHYSICIAN: Dr. Fitzpatrick INDICATION FOR THE PROCEDURE: Congestive heart failure MEASUREMENTS DERIVED VALUES LV DIAMETER (LAX) NORMALS NORMALS Diastolic 4.8 (3.6-5.2) Eject. Fract. (60%+/-6%) Systolic (2.3-3.9) Diastolic Vol. % Shortening (0.22-0.42) Systolic Vol. Aortic Root 3. IVS THICKNESS Diastolic 1.7 (0.6-1.1) LVPW THICKNESS Diastolic 1.5 (0.6-1.1) LA DIAMETER Systolic 4.9 (2.1-3.7) DESCRIPTION: Two dimensional echocardiography shows well preserved global left ventricular systolic function with an ejection fraction of approximately 60%. There is mild to moderate mitral annular calcification. There is moderate aortic valve sclerosis. There is no significant pericardial effusion. There is moderate concentric left ventricular hypertrophy. There is moderate enlargement of the atrium. Doppler imaging shows mild mitral and tricuspid regurgitation. Pulmonary artery systolic pressure is estimated to be approximately 35 to 40 mmHg. Mild pulmonic regurgitation is seen. There is no Doppler evidence of significant valvular stenosis. Aortic valve leaflet structure is not very well visualized. There is no evidence of any significant intracardiac shunt on this transthoracic echocardiographic study. Inferior vena cava is moderately dilated. CONCLUSION: 1. Normal global left ventricular systolic function with an ejection fraction of approximately 60%. 2. Pulmonary artery systolic pressure is estimated to be approximately 35 to 40 mmHg. 3. Mild aortic valve sclerosis and mild to moderate mitral annular calcification without evidence of significant valvular stenosis. 4. Mild mitral, tricuspid and aortic regurgitation. 5. Mild to moderate concentric left ventricular hypertrophy. 6. Moderate enlargement of the left atrium. Job ID: [id number] Dictated Date: 10/18/2016 18:33:19 Transfer Operator Date: 10/19/2016 09:20:29 / [place]
--- NOTE | 2016-10-19 09:44 | Progress Note-Cardiology ---
Cardiology SOAP Progress Note Subjective: Sitting up in a chair at the bedside. Daughter at the bedside. No c/o CP, palpitations or shortness of breath. Daughter states she was more short of breath this morning. Objective: I&O/Vital Signs Vital Sign - Last 12Hours 10/19/16 10/19/16 10/19/16 10/19/16 07:09 07:47 08:00 08:00 Temp 98.9 Pulse 76 88 Resp 24 B/P (MAP) 129/76 Pulse Ox 85 91 O2 Delivery Nasal Cannula O2 Flow Rate 3.00 3.00 10/19/16 10/19/16 10/19/16 10:41 12:00 14:40 Temp 99.0 Pulse 85 Resp 20 B/P (MAP) 101/55 Pulse Ox 91 92 92 O2 Delivery Nasal Cannula O2 Flow Rate 4.00 3.00 4.00 Intake and Output 10/19/16 00:00 Intake Total 870 ml Output Total 550 ml Balance 320 ml Weight (Pounds): 215 Weight (Ounces): 8.0 Weight (Calculated Kilograms): 97.644120 Constitutional: AAO x 3, well-developed, well-nourished Respiratory: No accessory muscle use, other (bilateral rhonchi and increase exp phase; diminished air entry at the bases, more on the right) Cardiovascular: irregularly irregular, S1 and S2, systolic murmur (faint JUMANA at cardiac base) Gastrointestional: No tender, soft, No guarding, audible bowel sounds Extremities: No clubbing, No cyanosis, significant edema (mild bilat LE edema) Neurologic/Psychiatric: oriented x 3, grossly intact, power is 5/5 both on sides Skin: other (areas of scratching and abrasions and excoriation and bruising on the legs) Results/Procedures: Labs Laboratory Tests 10/19/16 04:10: White Blood Count 10.0, Red Blood Count 4.12L, Hemoglobin 12.6, Hematocrit 40, Mean Corpuscular Volume 98, Mean Corpuscular Hemoglobin 31, Mean Corpuscular Hemoglobin Concent 31L, Red Cell Distribution Width 14.1, Platelet Count 222, Mean Platelet Volume 10.1, Neutrophils (%) (Auto) 75, Lymphocytes (%) (Auto) 16 , Monocytes (%) (Auto) 9, Eosinophils (%) (Auto) 0, Basophils (%) (Auto) 0, Neutrophils # (Auto) 7.5, Lymphocytes # (Auto) 1.6, Monocytes # (Auto) 0.9, Eosinophils # (Auto) 0.0, Basophils # (Auto) 0.0, Sodium Level 140, Potassium Level 3.9, Chloride Level 100, Carbon Dioxide Level 31, Anion Gap 9, Blood Urea Nitrogen 20H, Creatinine 0.83, Estimat Glomerular Filtration Rate > 60, BUN/ Creatinine Ratio 24, Glucose Level 118H, Calcium Level 9.3, Magnesium Level 2.2 , Total Bilirubin 0.4, Aspartate Amino Transf (AST/SGOT) 30, Alanine Aminotransferase (ALT/SGPT) 31, Alkaline Phosphatase 63, Total Protein 6.5, Albumin 3.8 Microbiology 10/17/16 Blood Culture - Preliminary, Resulted No growth 10/18/16 Gram Stain - Final, Complete 10/18/16 Sputum Culture - Final, Complete Usual/normal mary ann isolated. A/P: Assessment: * Multifactorial dyspnea (see below) * Newly diagnosed CHF of undetermined etiology * Atrial fibrillation of unknown age, first diagnosed on 10/17/16, with a rapid vent response * Normal global left ventricular systolic function with an ejection fraction of approximately 60%. Pulmonary artery systolic pressure is estimated to be approximately 35 to 40 mmHg. Mild aortic valve sclerosis and mild to moderate mitral annular calcification without evidence of significant valvular stenosis. Mild mitral, tricuspid and aortic regurgitation. Mild to moderate concentric left ventricular hypertrophy. Moderate enlargement of the left atrium. Per echocardiogram of 10-18-16 * RLL and RML pneumonia, managed by Dr Bach * Probable COPD (chronic bronchitis) managed by Dr Bach * Chronic tobacco use * Hypertension * H/o non-alcoholic cirrhosis diagnosed in or around 1991 from which, she states , she made full recovery * Cholelithiasis * Thyroid nodule diagnosed on a CT scan of 10/07/16, managed by Dr Bach Plan: * Continue B-blockers and/or Ca blockers for vent rate control * Continue diuretics for CHF * Apixaban for stroke prophylaxis * Monitor labs * Management of pneumonia and COPD and cirrhosis and thyroid and other medical issues is with Dr Bach * We have spoke with her and her daughter in detail and answered questions * Dr. Bach and Dr. Garcia have referred her for Hospice consult Physician Assessment Physician Assessment Lungs: scattered rhonchi Cor: irreg A&R * As documented in our note above * I had a detailed discussion with her and her daughter * I have advised OAC for stroke prophylaxis, CCB for vent rate control, and diuretic for ac padgett CHF * I discussed the pros and cons of all of her card meds and answered questions in detail * I advised immediate and complete smoking cessation * I advised close outpt card f/u * I discussed her case with MALACHI Karimi COMMUNICATIONS DIRECTOR Oct 19, 2016 09:44 [address]IA STOKES [facility] Oct 19, 2016 15:58
--- NOTE | 2016-10-19 11:08 | Discharge Summary-Hospitalist ---
Diagnosis/Chief Complaint Date of Admission Oct 17, 2016 at 21:00 Date of Discharge Admission Diagnosis Assessment: Atrial fibrillation with rapid ventricular response weaning off Cardizem drip to by mouth form per Dr. Fitzpatrick New onset congestive heart failure with volume overload and edema echocardiogram results pending History of liver cirrhosis due to alcoholism Bronchitis bacterial type Noncompliance with medical treatments and recommendations Cognitive decline Poor psychosocial issues Discharge Diagnosis Assessment: New onset atrial fibrillation Volume overload Cirrhosis Noncompliance with medical treatment Severe COPD Plan: Home O2 eval which she will likely refuse anyway Medications per Dr. Fitzpatrick and Dr. Garcia Very difficult situation given the fact that the daughter desperately wants to help her but mother resistant to treatment so we will consult palliative care due to advanced age and comorbidities patient will continue to decline and allow natural course of life to ensue Reason Hospital Visit/Course CC: Severe weakness HPI: This is 81yoWF pt that has not seen a doctor in many years that presented with new onset AF w/RVR, CHF and pneumonia. Cardiology and Pulmonology have been consulted and Cardizem drip is being changed to PO. Dr. Fitzpatrick Review: AF w/RVR. Pt has cirrhosis, thyroid nodule, pneumonia, bronchitis statistics intern: Pt has never see a physician. Pt takes C[place] for HTN. Pt states that medicine is poison. Pt is on O2. Pt heart rate is 70s-80s now and weaning off drip. Patient Interview: Pt states she feels fine. Pt just moved into her daughters house in [facility]. Pt just moved from [place], [place] living with another daughter. Pt daughter states she does not like doctors or medicine. Physical exam was stable. Pt denies using O2 at home. Pt would like to be DC soon. Scribed by Maurilio Merino under the direct supervision of Dr. Trinh. Note from Dr. Garcia Review: Pt is willing to be sent home on hospice care. Pt was told she can make her own decisions since she does not want medical care. Dr Fitzpatrick: Pt can be DC from a Cardiology point of view. Pharmacy Review: Pt labs look good. Pt is on all oral meds. Palliative Care Review: Pt diagnosis will be COPD. Patient Interview: Pt states she guesses she is doing terrible and awful. Pt cath will be removed. Pt states she had problems breathing this morning. Physical exam was stable. Pt states overall she is improving but states everyone else does not think she is doing well. Pt daughter is emotional and wants her mother to take medicine but knows that this is her mothers choice. Pt and her daughter were told that whatever the pt decides to do that the staff will support her decision. No fever, vital signs stable, chronically ill Irregular irregular rhythm, clear to auscultation bilaterally but diminished in the bases Trace edema Plan: 4.0 L continuous Scribed by Maurilio Merino under the direct supervision of Dr. Trinh. Hospital course: Patient was admitted after refusing to seek medical treatment for the past several years and was found to have new onset atrial fibrillation with volume overload, COPD, Early pneumonia with bronchitis and liver cirrhosis. She reluctantly agreed for admission felt like all medications were poison and wanted no part of any type of treatment but once we talked the hospice route she was willing to establish with a doctor and talk about her health and her long-term plans. She met criteria for 4 L of oxygen continuously and was discharged in stable condition on all cardiac medication that was appropriate and will be followed up by Dr. Dennis Montiel. Discharge Summary Discharge Physical Examination Allergies: Coded Allergies: No Known Drug Allergies (Unverified , 10/17/16) Vitals & I&Os Vital Signs Date Time Temp Pulse Resp B/P (MAP) Pulse Ox O2 Delivery O2 Flow Rate FiO2 10/19/16 12:00 99.0 85 20 101/55 92 Nasal Cannula 3.00 Hospital Course Labs (last 24 hrs) Laboratory Tests 10/19/16 04:10: White Blood Count 10.0, Red Blood Count 4.12L, Hemoglobin 12.6, Hematocrit 40, Mean Corpuscular Volume 98, Mean Corpuscular Hemoglobin 31, Mean Corpuscular Hemoglobin Concent 31L, Red Cell Distribution Width 14.1, Platelet Count 222, Mean Platelet Volume 10.1, Neutrophils (%) (Auto) 75, Lymphocytes (%) (Auto) 16 , Monocytes (%) (Auto) 9, Eosinophils (%) (Auto) 0, Basophils (%) (Auto) 0, Neutrophils # (Auto) 7.5, Lymphocytes # (Auto) 1.6, Monocytes # (Auto) 0.9, Eosinophils # (Auto) 0.0, Basophils # (Auto) 0.0, Sodium Level 140, Potassium Level 3.9, Chloride Level 100, Carbon Dioxide Level 31, Anion Gap 9, Blood Urea Nitrogen 20H, Creatinine 0.83, Estimat Glomerular Filtration Rate > 60, BUN/ Creatinine Ratio 24, Glucose Level 118H, Calcium Level 9.3, Magnesium Level 2.2 , Total Bilirubin 0.4, Aspartate Amino Transf (AST/SGOT) 30, Alanine Aminotransferase (ALT/SGPT) 31, Alkaline Phosphatase 63, Total Protein 6.5, Albumin 3.8 Microbiology 10/17/16 Blood Culture - Preliminary, Resulted No growth 10/18/16 Gram Stain - Final, Complete 10/18/16 Sputum Culture - Final, Complete Usual/normal mary ann isolated. Pending Labs Discharge Home Medications: Active Scripts Active Lasix (Furosemide) 20 Mg Tablet 20 Mg PO DAILY Aspirin EC (Aspirin) 325 Mg Tablet.dr 325 Mg PO DAILY Diltiazem 24Hr Cd (Diltiazem HCl) 240 Mg Cap.er.24h 240 Mg PO DAILY Metoprolol Succinate 25 Mg Tab.er.24h 25 Mg PO BID Eliquis (Apixaban) 5 Mg Tablet 5 Mg PO BID Cefdinir 300 Mg Capsule 300 Mg PO BID Instructions to patient/family Please see electonic discharge instructions given to patient. Clinical Quality Measures DVT/VTE Risk/Contraindication: Risk Factor Score Per Nursin RFS Level Per Nursing on Admit: 4+=Very High SIMÓN TRINH DO Oct 19, 2016 11:08
[2016-10-19 12:00] VITALS: BP 101/55
[2016-10-19] MEDS ORDERED: DILT240C90 PO (12:14)
[2016-10-19] MEDS ORDERED: ASPI325T32 PO (12:14)
[2016-10-19] MEDS ORDERED: CEFD300C3 PO (12:14)
[2016-10-19] MEDS ORDERED: APIX5TAB PO (12:14)
[2016-10-19] MEDS ORDERED: METO-270 PO (12:14)
[2016-10-19] MEDS ORDERED: FURO-125 PO (12:14)
--- NOTE | 2016-10-19 12:15 | Discharge Instructions ---
Discharge Instructions Discharge Medications New, Converted or Re-Newed RX: Transmitted to Pharmacy New Medications: Cefdinir (Cefdinir) 300 Mg Capsule 300 MG PO BID, #4 CAP Furosemide (Lasix) 20 Mg Tablet 20 MG PO DAILY, #30 TAB Apixaban (Eliquis) 5 Mg Tablet 5 MG PO BID, #60 TAB Aspirin (Aspirin EC) 325 Mg Tablet.dr 325 MG PO DAILY, #30 TAB Diltiazem HCl (Diltiazem 24Hr Cd) 240 Mg Cap.er.24h 240 MG PO DAILY, #30 CAP Metoprolol Succinate (Metoprolol Succinate) 25 Mg Tab.er.24h 25 MG PO BID, #60 TAB Patient Instructions Goal/Follow Up Appt: Obtain appt with Dr Dennis Montiel to establish care Activity & Diet Discharge Diet: Low Sodium Diet, Cardiac Diet Activity as Tolerated: Yes SIMÓN TRINH DO Oct 19, 2016 12:15
--- NOTE | 2016-10-19 12:18 | Discharge Inst-Home Health ---
Discharge Inst-to Home Health Patient Instructions Patient Instructions/FollowUp: Take medicine as directed Patient Problems: CHF AF Cirrhosis VIA [place], [place] DISCHARGE ORDERS Allergies: Coded Allergies: No Known Drug Allergies (Unverified , 10/17/16) Height (Feet): 5 Height (Inches): 5.00 Weight (Pounds): 215 Weight (Ounces): 8.0 Home Health Need/Face to Face Reason Pt Homebound weakness, home O2 I Have Seen Pt [id number]: Yes Date of Face to Face: Oct 19, 2016 Discharged To: Home Diagnosis/Conditions HH Order: Med adminstration Home O2 counseling Consult/Follow Up/New Order *I certify that based on my findings, the following services are medically necessary Home Health Services: Services: Nursing Services, [facility]-Evaluate & Treat, Physical Therapy-Evaluate & Treat My clinical findings support the need for the above services; see Diagnosis. Dicharge Diet: Cardiac Diet, Low Sodium Diet Daily Activity as Tolerated: Yes Pneu Vac Indicated: Yes Discharge Medications: New, Converted, or Re-newed RX: Transmited to Pharmacy I certify that this patient is under my care and that I, a nurse practitioner or a physician; a assistant federal public defender working with me, had a face to face encounter that - meets the physician face to face encounter requirements with this patient as dated. SIMÓN TRINH DO Oct 19, 2016 12:18
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
--- NOTE | 2016-10-19 15:47 | Occ Therapy Progress Note ---
Therapy Progress Note 1355 to 1405 Pt education on purpose of OT. She demonstrated that she was able to get her socks off and on, stand up from recliner without assistance and reported that she has been taking herself to the bathroom. She declined OT, stating that she has been taking care of herself and doesn't need any help. DC OT. visit MILLIE HAN OT Oct 19, 2016 15:47
== END 2016-10-19 16:30 | disposition home health service (06) | DRG 308 ==
LOC: DELPENDDIS → ER 17:39 → ICU 21:00 → 4TH 10-18 19:05
PROVIDERS: ADMIT Internal Medicine; ATTEND Internal Medicine
DX: I48.0 Paroxysmal atrial fibrillation (principal); I11.0 Hypertensive heart disease with heart failure; I50.9 Heart failure, unspecified; J44.0 Chronic obstructive pulmonary disease with (acute) lower respiratory infection; J18.9 Pneumonia, unspecified organism; F17.210 Nicotine dependence, cigarettes, uncomplicated; K80.20 Calculus of gallbladder without cholecystitis without obstruction; K70.30 Alcoholic cirrhosis of liver without ascites; F10.21 Alcohol dependence, in remission; E04.1 Nontoxic single thyroid nodule; R41.81 Age-related cognitive decline; E66.9 Obesity, unspecified; Z68.35 Body mass index [BMI] 35.0-35.9, adult; Z91.19 Patient's noncompliance with other medical treatment and regimen
CPT/HCPCS: 36415; 51702; 71010; 71275; 80053; 80061; 80320; 81000; 82550; 82553; 83605; 83735; 83874; 83880; 84443; 84484; 85025; 85610; 85730; 87040; 87070; 87077; 87081; 87205; 93005; 93041; 93306; 94640; 94664; 94761; 96365; 96366; 96367; 96372; 96375